=== PATIENT | male | born 1985 | race Caucasian/White ===

== ENCOUNTER 2018-09-21 23:35 | Inpatient (IN) | payer BC ==
[~2018-09-21] VITALS: Ht 177.8 cm; Wt 89.8 kg
--- NOTE | ~2018-09-21 | EKG ---
[place], [place] ELECTROCARDIOGRAM REPORT NAME: KERA COBOS UNIT #: [id number] ROOM: [facility] DOCTOR: GRAYSON DRAFT REPORT BIRTHDATE: [birth year] [facility] Test Date: 2018-09-22 Test Time: 00:09:20 Pat Name: KERA COBOS Department: ER Room: [facility] Gender: M Manager Programming: Carlitos Chandler : 1985 Requested By: HARRY MADRIGAL Order Number: [id number] Reading MD: Suzanne Romero MD Measurements Intervals [place] Rate: 88 P: 42 NH: 140 QRS: -7 QRSD: 98 T: 5 QT: 350 QTc: 424 Interpretive Statements Sinus rhythm Borderline T abnormalities, anterior leads No previous ECG available for comparison Electronically Signed On 09-25-2018 11:55:49 PST by Suzanne Romero MD CM:EKGRPT:ELECTROCARDIOGRAM REPORT [id number] HARRY RANKIN DRAFT REPORT HARRY MADRIGAL DO
[~2018-09-21 23:35] MED LIST: AUGMENTIN 875 M1 TAB PO; CODEINE PO; MEDROL DOSEPAK4 MG PO; MOTRIN800 MG PO; PROMETHAZINE PO; ROBAXIN750 MG PO; ZOFRAN4 MG PO
[2018-09-21 23:45] VITALS: BP 126/82
[2018-09-21] MEDS ORDERED: ADDERALL XR20 MG PO (23:46)
[2018-09-21] MEDS ORDERED: TRINTELLIX10 MG PO (23:46)
[2018-09-22] VITALS (7 sets, daily range): BP systolic 113–139; BP diastolic 68–92
[2018-09-22 00:14] LABS: BASO % 0.4 % (0.0-1.0); EOS # 0.1 10*3/uL (0.0-0.4); EOS % 0.7 % (1.0-4.0); HEMATOCRIT 47.4 % (42.0-52.0); HEMOGLOBIN 15.7 g/dl (14.0-18.0); LYMPH # 2.9 10*3/uL (1.3-4.4); LYMPH % 28.4 % (27.0-41.0); MEAN CELL VOLUME 84.5 fl (80.0-94.0); MEAN CORPUSCULAR HGB CONC 33.1 g/dl (33.0-37.0); MEAN PLATELET VOLUME 10.3 fl (9.6-12.3); MONO # 0.6 10*3/uL (0.1-1.0); MONO % 5.6 % (3.0-9.0); NEUT # 6.5 10*3/uL (2.3-7.9); NEUT % 64.6 % (47.0-73.0); PLATELET COUNT AUTOMATED 379 10*3/uL (130-400); RED BLOOD COUNT 5.61 10*6/uL (4.50-5.90); RED CELL DISTRI WIDTH 13.3 % (0-14.5)
--- NOTE | 2018-09-22 00:15 | NUR ---
PATIENT SITTING UP IN BED. REDNESS DECREASED. SPEECH CLEAR. PER PATIENT TONGUE FEEL LESS SWOLLEN AT THIS TIME AFTER MEDICATION. FAMILY AT THE BEDSIDE. RESPIRATIONS EASY, NON-LABORED ON ROOM AIR.
[2018-09-22 00:30] LABS: ALBUMIN 3.4 gm/dl (3.1-4.5); ALKALINE PHOSPHATASE 77 U/L (45-117); BUN 16 mg/dl (7-24); CHLORIDE 108 mmol/L (98-107); POTASSIUM 3.5 mmol/L (3.5-5.1); SGOT/AST 10 IU/L (3-35); SGPT/ALT 26 U/L (12-78); SODIUM 141 mmol/L (136-145); TOTAL PROTEIN 6.8 gm/dL (6.4-8.2)
--- NOTE | 2018-09-22 01:28 | NUR ---
PER PATIENT ANXIETY IS STARTING TO FLARE UP, PATIENT REQUESTING XANAX AT THIS TIME. PER PATIENT TAKES XANAX 1MG TID AT HOME. DR KAITLIN HOWARD.
--- NOTE | 2018-09-22 03:33 | NUR ---
PATIENT RESTING IN BED. PROVIDED PATIENT WITH WARM BLANKETS AT THIS TIME. PATIENT HAD FAMILY BRING HIM IN FOOD. PATIENT DENIES ANY FURTHER NEEDS. RESPIRATIONS EASY, NON-LABORED ON ROOM AIR. CALL LIGHT WITHIN REACH. RN WILL CONTINUE TO MONITOR.
[2018-09-22] MEDS ORDERED: XANAX1 MG PO (03:40)
--- NOTE | 2018-09-22 04:00 | NUR ---
PATIENT RESTING QUIETLY IN BED WITH LIGHTS TURNED DOWN. RESPIRATIONS EASY, NON-LABORED ON ROOM AIR. NO DISTRESS NOTED. RN WILL CONTINUE TO MONITOR.
[2018-09-22 06:30] LABS: HEMATOCRIT 42.2 % (42.0-52.0); HEMOGLOBIN 13.7 g/dl (14.0-18.0); MEAN CELL VOLUME 84.9 fl (80.0-94.0); MEAN CORPUSCULAR HGB 27.6 pg (27.0-31.0); MEAN CORPUSCULAR HGB CONC 32.5 g/dl (33.0-37.0); MEAN PLATELET VOLUME 11.2 fl (9.6-12.3); PLATELET COUNT AUTOMATED 288 10*3/uL (130-400); RED BLOOD COUNT 4.97 10*6/uL (4.50-5.90); RED CELL DISTRI WIDTH 13.4 % (0-14.5); WHITE BLOOD COUNT 15.9 10*3/uL (4.8-10.8)
[2018-09-22 06:54] LABS: ALBUMIN 3.4 gm/dl (3.1-4.5); ALKALINE PHOSPHATASE 72 U/L (45-117); BUN 15 mg/dl (7-24); CHLORIDE 111 mmol/L (98-107); CREATININE 1.15 mg/dL (0.70-1.30); PHOSPHOROUS 1.3 mg/dL (2.5-4.9); SGOT/AST 13 IU/L (3-35); SGPT/ALT 28 U/L (12-78); SODIUM 141 mmol/L (136-145); TOTAL PROTEIN 6.8 gm/dL (6.4-8.2)
[2018-09-22 07:08] LABS: PLATELET SUFFICIENCY NORMAL (NORMAL); TOTAL CELLS COUNTED 100 #CELLS
--- NOTE | 2018-09-22 07:12 | NUR ---
Shift chart check completed.
--- NOTE | 2018-09-22 07:30 | NUR ---
A 33, admitted to [facility], under the services of MIGUEL Villa DO with a diagnosis of ANAPHYLAXIS. Chief complaint is REDNESS, TONGUE FELT THICK. Patient arrived via wheel chair from ER. Monitor applied. Initial assessment completed. Vital signs taken and recorded. MIGUEL VILLA DO notified of admission to the unit. Orders received. See assessment for past medical history, medications and allergies. Patient and/or family oriented to unit. [facility] visitation policy reviewed. Clothing/patient valuable form completed. CHACHA MULLEN
[2018-09-22] MEDS ORDERED: AMOXICILLIN500 M2 PO (07:43)
--- NOTE | 2018-09-22 09:44 | NUR ---
DR STEPH FLOOD
[2018-09-22] MEDS ORDERED: CLEOCIN HCL150 MG PO (13:23)
[2018-09-22] MEDS ORDERED: PREDNISONE10 MG PO (13:23)
--- NOTE | 2018-09-22 13:55 | NUR ---
Discharge instructions reviewed with patient/family. Patient receptive and verbalizes understanding. Follow-up care arranged. Written instructions given to patient/family. IV discontinued. Site asymptomatic. Pressure applied. Sterile dressing applied. ANDRE SHAH AWAITING RIDE HOME
--- NOTE | 2018-09-22 14:00 | NUR ---
AMBULATED OUT WITH SISTER & ALL BELONGINGS
--- NOTE | 2018-10-23 11:00 | NUR ---
Spoke to Nancie at [facility], , regarding requesting a copy of denial letter. Nancie states a denial letter was mailed on September 28. Fax number of [phone] given as requested to fax a second copy of the denial letter. Ref # [id number]
== END 2018-09-22 14:00 | disposition home or self-care (01) | DRG 916 ==
LOC: ED 23:35 → EDHOLD 09-22 00:58 → ICCU 09-22 07:46
PROVIDERS: Emergency Medicine; Family Medicine; ADMIT Internal Medicine
DX: T78.3XXA Angioneurotic edema, initial encounter (principal); T88.6XXA Anaphylactic reaction due to adverse effect of correct drug or medicament properly administered, initial encounter; E87.8 Other disorders of electrolyte and fluid balance, not elsewhere classified; F90.9 Attention-deficit hyperactivity disorder, unspecified type; F41.1 Generalized anxiety disorder; D72.829 Elevated white blood cell count, unspecified; D64.9 Anemia, unspecified; T36.0X5A Adverse effect of penicillins, initial encounter; R73.9 Hyperglycemia, unspecified; Z88.0 Allergy status to penicillin; Z88.2 Allergy status to sulfonamides; Y92.89 Other specified places as the place of occurrence of the external cause

== ENCOUNTER 2021-03-18 21:52 | Emergency (ER) | payer OTHER ==
[~2021-03-18] VITALS: Ht 177.8 cm; Wt 100.9 kg
[~2021-03-18 21:52] MED LIST changes: +ADDERALL XR20 MG PO; +AMOXICILLIN500 M2 PO; +CLEOCIN HCL150 MG PO; +PREDNISONE10 MG PO; +TRINTELLIX10 MG PO; +XANAX1 MG PO
[2021-03-18 23:39] LABS: BASO # 0.1 10*3/uL (0.0-0.1); BASO % 0.4 % (0.0-1.0); EOS # 0.1 10*3/uL (0.0-0.4); EOS % 0.5 % (1.0-4.0); HEMATOCRIT 42.9 % (42.0-52.0); LYMPH # 2.1 10*3/uL (1.3-4.4); LYMPH % 16.4 % (27.0-41.0); MEAN CELL VOLUME 81.1 fl (80.0-94.0); MEAN CORPUSCULAR HGB 26.7 pg (27.0-31.0); MEAN CORPUSCULAR HGB CONC 32.9 g/dl (33.0-37.0); MEAN PLATELET VOLUME 10.4 fl (9.6-12.3); MONO % 7.6 % (3.0-9.0); NEUT # 9.8 10*3/uL (2.3-7.9); NEUT % 74.6 % (47.0-73.0); PLATELET COUNT AUTOMATED 297 10*3/uL (130-400); RED BLOOD COUNT 5.29 10*6/uL (4.50-5.90); RED CELL DISTRI WIDTH 13.6 % (0-14.5); WHITE BLOOD COUNT 13.1 10*3/uL (4.8-10.8)
[2021-03-18 23:54] LABS: ALBUMIN 4.1 gm/dl (3.1-4.5); ALKALINE PHOSPHATASE 102 U/L (45-117); BUN 21 mg/dl (7-24); CHLORIDE 105 mmol/L (98-107); POTASSIUM 3.9 mmol/L (3.5-5.1); SGOT/AST 18 IU/L (3-35); SGPT/ALT 40 U/L (12-78); SODIUM 138 mmol/L (136-145); TOTAL PROTEIN 8.3 gm/dL (6.4-8.2)
[2021-03-19] MEDS ORDERED: OMEPRAZOLE40 MG PO (01:00)
== END 2021-03-19 01:20 | disposition home or self-care (01) ==
LOC: ED 21:52
PROVIDERS: Internal Medicine
DX: U07.1 COVID-19 (principal); D72.829 Elevated white blood cell count, unspecified; Z79.899 Other long term (current) drug therapy; Z88.0 Allergy status to penicillin; Z88.8 Allergy status to other drugs, medicaments and biological substances